=== PATIENT | male | born 1970 | race Caucasian/White ===

== ENCOUNTER → 2018-09-10 | Outpatient (CLI) | payer BC ==
[2018-09-10 17:02] LABS: HCT 48.4 % (39.0-53.0); HGB 15.1 gm/dL (13.0-17.5); MCH 29.3 pg (25.0-35.0); MCHC 31.2 g/dL (31.0-37.0); Mean Platelet Volume 5.9; Platelet Count 325 k/uL (150-450); RBC 5.15 m/uL (4.30-5.90); RDW 13.3 % (11.5-15.5); WBC 13.8 k/uL (3.8-10.6)
== END ==
LOC: LABPAT 16:28
PROVIDERS: ATTEND Surgery
DX: Z01.812 Encounter for preprocedural laboratory examination (principal); L05.91 Pilonidal cyst without abscess
CPT/HCPCS: 85027

== ENCOUNTER 2018-09-12 06:29 | Day surgery (SDC) | payer BC, SELFPAY ==
[2018-09-10 09:46] VITALS: BMI 46.3
[~2018-09-12 06:29] MED LIST: DEXAMETHASONE SOD PHOSPHATE 10 MG/ML 1 ML VIAL IV ONE; HEPARIN SODIUM,PORCINE 5,000 UNIT/ML 1 ML VIAL SQ ONE; HYDROmorphone 0.5 MG/0.5 ML SYRINGE IVP PRN; LACTATED RINGERS 1,000 ML IV SCH; LIDOCAINE 1% 20 ML VIAL (10MG/ML) FOR IV START INTRADERMA PRN; ONDANSETRON 4 MG/2 ML VIAL IVP ONE; SCOPOLAMINE 1.5MG/72HR PATCH TRANSDERM ONE; ceFAZolin IN SWFI 2 GM/20 ML SYRINGE IVP ONE; metroNIDAZOLE-NS PMX 500 MG in SALINE 1 100ML.BAG IVPB ONE
[2018-09-12] MEDS ORDERED: BUPIVACAIN-EPI 0.25%-1:200,000 30 ML VIAL SQ ONE (07:58)
[2018-09-12] MEDS ORDERED: fentaNYL (PF) 50 MCG/ML 2 ML AMP ONE (08:12)
[2018-09-12] MEDS ORDERED: MIDAZOLAM 2 MG/2 ML VIAL ONE (08:12)
[2018-09-12] MEDS ORDERED: LIDOCAINE 1% INJ 10MG/ML (20 ML MDV) ONE (08:12)
[2018-09-12] MEDS ORDERED: PROPOFOL 10 MG/ML 20 ML VIAL IV ONE (08:12)
[2018-09-12] MEDS ORDERED: SUCCINYLCHOLINE CHLORIDE VIAL 200 MG/10 ML VIAL IV ONE (08:12)
[2018-09-12 09:25] VITALS: RESP 16; TEMP 97.1
--- NOTE | 2018-09-12 09:42 | P.OP ---
Date of Procedure: 09/12/18 Preoperative Diagnosis: Recurrent chronic pilonidal cyst Postoperative Diagnosis: Recurrent chronic pilonidal cyst Procedure(s) Performed: Excision of chronic recurrent pilonidal cyst Anesthesia: HAYLEE Surgeon: Enrique Lafleur Estimated Blood Loss (ml): 30 Pathology: other (Pilonidal cyst) Condition: stable Disposition: PACU Description of Procedure: The patient's placed on the operating table in the prone position after receiving general anesthesia. His buttocks were prepped in the usual fashion. Patient had a chronic pilonidal cyst. There was a superior and inferior cyst opening. Elliptical skin incision was made around the area pilonidal cyst. And then using left cautery the dissection was taken down level of the coccyx. This was withdrawn. The patient had quite an extensive pilonidal cyst. The wound measured approximately 14 x 5 x 3 cm. The wound was packed with Kerlix. Patient top she will was sent to recovery room stable condition.
[2018-09-12 10:25] VITALS: BP 123/73; PULSE 74
== END 2018-09-12 10:29 | disposition home or self-care (01) ==
LOC: OR 06:29
PROVIDERS: ATTEND Surgery
DX: L05.91 Pilonidal cyst without abscess (principal); I25.10 Atherosclerotic heart disease of native coronary artery without angina pectoris; I25.2 Old myocardial infarction; J45.909 Unspecified asthma, uncomplicated; K21.9 Gastro-esophageal reflux disease without esophagitis; Z79.899 Other long term (current) drug therapy; Z87.891 Personal history of nicotine dependence
CPT/HCPCS: 88304; 11771; J2250; J0330; J1644; J1100; J2405; J2001; J3010; J2704; J1170; J0690

== ENCOUNTER 2020-03-10 18:47 | Emergency (ER) | payer BC ==
[2020-03-10 18:55] VITALS: TEMP 98.1
[2020-03-10 19:47] LABS: Amphetamine Screen,Urine Not Detected (NotDetected); Barbiturate Screen,Urine Not Detected (NotDetected); Benzodiazepines Screen,Urine Not Detected (NotDetected); Cocaine Screen,Urine Not Detected (NotDetected); Methadone Screen, Urine Not Detected (NotDetected); Opiate Screen,Urine Not Detected (NotDetected); Oxycodone Screen, Urine Not Detected (NotDetected); Phencyclidine Screen,Urine Not Detected (NotDetected); Tricyclic Antidepressant,Urine Not Detected (NotDetected); Urn Cannabinoid Scrn Not Detected (NotDetected)
--- NOTE | 2020-03-10 19:57 | ED ---
Psych HPI - General Chief Complaint: Psychiatric Symptoms Stated Complaint: Mental health Time Seen by Provider: 03/10/20 18:56 Source: patient Mode of arrival: ambulatory - History of Present Illness Initial Comments: 50-year-old male patient presents to the emergency department today for evaluation of suicidal ideation and depression. Patient states he has had increased suicidal thoughts over the last 2 days. States that over the last 3-4 years he has been having a lot of stress and becoming more and more depressed. Patient does not take any medications for depression. Does not see a counselor. Patient denies frequent alcohol use or street drug use. Patient does not have a specific plan to take his life. States he is having difficulty sleeping and has had no appetite due to the depression. He denies hallucinations. Patient denies any recent rash, fever, chills, cough, shortness of breath, chest pain, abdominal pain, nausea, vomiting, diarrhea, constipation, back pain, numbness, tingling, dizziness, weakness, hematuria, dysuria, urinary urgency, urinary frequency, headache, visual changes, or any other complaints. - Related Data Home Medications Medication Instructions Recorded Confirmed Albuterol Sulfate [Proair Hfa] 1 - 2 puff INHALATION Q6HR PRN 09/10/18 03/10/20 Albuterol Nebulized [Ventolin 2.5 mg INHALATION RT-QID PRN 03/10/20 03/10/20 Nebulized] Allergies Allergy/AdvReac Type Severity Reaction Status Date / Time No Known Allergies Allergy Verified 03/10/20 19:29 Review of Systems ROS Statement: Those systems with pertinent positive or pertinent negative responses have been documented in the HPI. ROS Other: All systems not noted in ROS Statement are negative. Past Medical History Past Medical History: Asthma, Myocardial Infarction ([place]) Last Myocardial Infarction Date:: 1999 History of Any Multi-Drug Resistant Organisms: None Reported Past Surgical History: Back Surgery, Cholecystectomy, Heart Catheterization With Stent Additional Past Surgical History / Comment(s): Pilonodial cyst removed Past Anesthesia/Blood Transfusion Reactions: No Reported Reaction Date of Last Stent Placement:: 1999 Past Psychological History: No Psychological Hx Reported Smoking Status: Current every day smoker Past Alcohol Use History: Occasional Past Drug Use History: None Reported - Past Family History Mother Family Medical History: Cancer Additional Family Medical History / Comment(s): Reproductive General Exam Limitations: no limitations General appearance: alert, in no apparent distress, other (This is a well- developed, well-nourished adult male patient in no acute distress. Vital signs upon presentation are temperature 98.1F, pulse 105, respirations 18, blood pressure 147/68, pulse ox 98% on room air.) Eye exam: Present: normal appearance, PERRL, EOMI. Absent: scleral icterus, conjunctival injection, periorbital swelling ENT exam: Present: normal exam, normal oropharynx, mucous membranes moist Respiratory exam: Present: normal lung sounds bilaterally. Absent: respiratory distress, wheezes, rales, rhonchi, stridor Cardiovascular Exam: Present: regular rate, normal rhythm, normal heart sounds. Absent: systolic murmur, diastolic murmur, rubs, gallop, clicks GI/Abdominal exam: Present: soft, normal bowel sounds. Absent: distended, tenderness, guarding, rebound, rigid Neurological exam: Present: alert, oriented X3, CN II-XII intact Psychiatric exam: Present: depressed, suicidal ideation. Absent: homicidal ideation Skin exam: Present: warm, dry, intact, normal color. Absent: rash Course Vital Signs 03/10/20 03/10/20 18:49 21:45 Temperature 98.1 F 98.1 F Pulse Rate 105 H 84 Respiratory 18 20 Rate Blood Pressure 147/68 111/78 O2 Sat by Pulse 98 96 Oximetry Medical Decision Making - Medical Decision Making 50-year-old male patient presents to the emergency department today for evaluation of increasing depression and suicidal ideation. Patient denies any actual plan to take his life. Denies history of suicide attempt. Physical examination is unremarkable. He was cleared medically and evaluated by [facility] psychiatric services. After their evaluation they did determine that he would be safe to discharge home. They did develop a safety plan was given a copy. He will follow up with outpatient mental health services as directed. He is instructed to follow-up with his primary care physician for recheck in 1-2 days. Return parameters were discussed in detail. He verbalizes understanding and agrees this plan. - Lab Data Lab Results 03/10/20 Range/Units 19:29 Urine Opiates Screen Not Detected (NotDetected) Ur Oxycodone Screen Not Detected (NotDetected) Urine Methadone Screen Not Detected (NotDetected) Ur Propoxyphene Screen Not Detected (NotDetected) Ur Barbiturates Screen Not Detected (NotDetected) U Tricyclic Antidepress Not Detected (NotDetected) Ur Phencyclidine Scrn Not Detected (NotDetected) Ur Amphetamines Screen Not Detected (NotDetected) U Methamphetamines Scrn Not Detected (NotDetected) U Benzodiazepines Scrn Not Detected (NotDetected) Urine Cocaine Screen Not Detected (NotDetected) U Marijuana (THC) Screen Not Detected (NotDetected) Disposition Clinical Impression: Depression Disposition: HOME SELF-CARE Condition: Good Instructions (If sedation given, give patient instructions): Depression (ED), Suicide Prevention (ED) Additional Instructions: Follow-up with outpatient mental health services as directed. Follow-up through primary care physician for recheck in 1-2 days. Return to the emergency department immediately for any new, worsening, or concerning symptoms. Is patient prescribed a controlled substance at d/c from ED?: No Referrals: Jad Goodrich MD [Primary Care Provider] - 1-2 days Time of Disposition: 21:41
[2020-03-10 21:48] VITALS: BP 111/78; PULSE 84; RESP 20
== END 2020-03-10 21:48 | disposition home or self-care (01) ==
LOC: EC 18:47
DX: F32.9 Major depressive disorder, single episode, unspecified (principal); R45.851 Suicidal ideations; J45.909 Unspecified asthma, uncomplicated; I25.2 Old myocardial infarction; F17.200 Nicotine dependence, unspecified, uncomplicated; Z95.5 Presence of coronary angioplasty implant and graft
CPT/HCPCS: 80306; 82075; 99285

== ENCOUNTER 2020-03-14 09:55 | Observation (INO) | payer BC ==
[2020-03-14] MEDS ORDERED: ASPIRIN 81 MG PO STA (10:01)
[2020-03-14] MEDS ORDERED: NITROGLYCERIN OINT 1 INCH/GM PACKET TOPICAL STA (10:01)
[2020-03-14 10:27] LABS: Basophils % (A) 0 %; Eosinophils # (A) 0.1 k/uL (0-0.7); Eosinophils % (A) 1 %; HCT 46.5 % (39.0-53.0); HGB 15.4 gm/dL (13.0-17.5); Lymphocytes # (A) 1.3 k/uL (1.0-4.8); Lymphocytes % (A) 14 %; MCH 30.5 pg (25.0-35.0); MCHC 33.2 g/dL (31.0-37.0); MCV 91.8 fL (80.0-100.0); Mean Platelet Volume 7.2; Monocytes # (A) 0.4 k/uL (0-1.0); Monocytes % (A) 4 %; Neutrophils # (A) 7.8 k/uL (1.3-7.7); Neutrophils % (A) 80 %; Platelet Count 319 k/uL (150-450); RBC 5.06 m/uL (4.30-5.90); WBC 9.8 k/uL (3.8-10.6)
[2020-03-14 10:37] LABS: ALT 38 U/L (4-49); AST 40 U/L (17-59); African American GFR (CKD) >90 (>60 ml/min/1.73 sqM); Albumin 4.6 g/dL (3.5-5.0); Alkaline Phosphatase 101 U/L (38-126); Anion Gap 12 mmol/L; Blood Urea Nitrogen 15 mg/dL (9-20); Calcium 9.8 mg/dL (8.4-10.2); Carbon Dioxide 18 mmol/L (22-30); Chloride 105 mmol/L (98-107); Creatine Kinase 250 U/L (55-170); Glucose 125 mg/dL (74-99); Magnesium 2.1 mg/dL (1.6-2.3); Non-African American GFR(CKD) >90 (>60 ml/min/1.73 sqM); Potassium 5.1 mmol/L (3.5-5.1); Sodium 135 mmol/L (137-145); Total Bilirubin 0.9 mg/dL (0.2-1.3); Total Protein 7.8 g/dL (6.3-8.2)
--- NOTE | 2020-03-14 10:37 | ED ---
Chest Pain HPI - General Chief Complaint: Chest Pain Stated Complaint: chest pain Time Seen by Provider: 03/14/20 09:55 Source: patient, RN notes reviewed Mode of arrival: ambulatory Limitations: no limitations - History of Present Illness Initial Comments: This a 42-year-old male with prior history of heart disease and heart attack about 15 years ago who was brought in by EMS today because the onset of left- sided sharp chest pain feels similar to what he had with his previous ND. He was found be complaining of chest pain was diaphoretic pain was described as sharp mid and left sternal he was given nitroglycerin the pain improved from about a 9 to a 6/10. No definite EKG changes noted per paramedics. He was at work at the time when this occurred. No unusual activity or lifting. No cough phlegm production fevers chills. No other modifying factors. He did not take aspirin today. MD Complaint: chest pain - Related Data Home Medications Medication Instructions Recorded Confirmed Albuterol Sulfate [Proair Hfa] 1 puff INHALATION RT-DAILY PRN 09/10/18 03/14/20 Albuterol Nebulized [Ventolin 2.5 mg INHALATION RT-QID PRN 03/10/20 03/14/20 Nebulized] Allergies Allergy/AdvReac Type Severity Reaction Status Date / Time No Known Allergies Allergy Verified 03/14/20 10:54 Review of Systems ROS Statement: Those systems with pertinent positive or pertinent negative responses have been documented in the HPI. ROS Other: All systems not noted in ROS Statement are negative. EKG Findings - EKG Results: EKG: interpreted by ERMD, sinus rhythm, normal axis, normal QRS, normal ST/T, no acute changes (Normal sinus rhythm a 79 [place] interval is 170 QT QRS 70 daily QT since QTC 388/[address]-T wave changes seen) Past Medical History Past Medical History: Asthma, Myocardial Infarction ([place]) Last Myocardial Infarction Date:: 1999 History of Any Multi-Drug Resistant Organisms: None Reported Past Surgical History: Back Surgery, Cholecystectomy, Heart Catheterization With Stent Additional Past Surgical History / Comment(s): Pilonodial cyst removed Past Anesthesia/Blood Transfusion Reactions: No Reported Reaction Date of Last Stent Placement:: 1999 Past Psychological History: Depression Smoking Status: Current every day smoker Past Alcohol Use History: Occasional Past Drug Use History: None Reported - Past Family History Mother Family Medical History: Cancer Additional Family Medical History / Comment(s): Reproductive General Exam - General Exam Comments Initial Comments: This is a well-developed well-nourished awake alert oriented 3 male Limitations: no limitations General appearance: alert, anxious Head exam: Present: atraumatic, normocephalic, normal inspection Eye exam: Present: normal appearance, PERRL, EOMI. Absent: scleral icterus, conjunctival injection, periorbital swelling ENT exam: Present: normal exam, mucous membranes moist Neck exam: Present: normal inspection. Absent: tenderness, meningismus, lymphadenopathy Respiratory exam: Present: normal lung sounds bilaterally, chest wall tenderness. Absent: respiratory distress, wheezes, rales, rhonchi, stridor Cardiovascular Exam: Present: regular rate, normal rhythm, normal heart sounds. Absent: systolic murmur, diastolic murmur, rubs, gallop, clicks GI/Abdominal exam: Present: soft, normal bowel sounds. Absent: distended, tenderness, guarding, rebound, rigid Extremities exam: Present: normal inspection, full ROM, normal capillary refill. Absent: tenderness, pedal edema, joint swelling, calf tenderness Back exam: Present: normal inspection Neurological exam: Present: alert, oriented X3, CN II-XII intact Psychiatric exam: Present: normal affect, normal mood Skin exam: Present: warm, dry, intact, normal color. Absent: rash Course Vital Signs 03/14/20 03/14/20 10:07 11:19 Temperature 97.8 F 97.9 F Pulse Rate 77 78 Respiratory 18 18 Rate Blood Pressure 133/76 142/79 O2 Sat by Pulse 99 97 Oximetry Chest Pain MDM - MDM Imaging reviewed shows no acute findings. Patient does have. After discussed with patient family and Dr. Gr patient will be admitted for cardiology evaluation. Critical Care Time Critical Care Time: Yes Total Critical Care Time: 31 Critical Care Time: Critical care time includes initial presentation with history physical discussed with paramedics labs x-rays reevaluation patient responsive therapy discuss with the admitting physician admission orders and documentation of the above. Disposition Clinical Impression: Unstable angina pectoris, Chest pain Disposition: ADMITTED IP TO THIS [facility] Condition: Fair Referrals: Jad Goodrich MD [Primary Care Provider] - 1-2 days
--- NOTE | 2020-03-14 10:37 | XR ---
EXAMINATION TYPE: XR chest 2V DATE OF EXAM: 03/14/2020 HISTORY: Chest Pain. REFERENCE: Previous study dated 12/26/2013. FINDINGS: Heart size upper limits of normal. The lungs are clear. Pleural space are clear. IMPRESSION: BORDERLINE CARDIOMEGALY.
[2020-03-14 10:57] LABS: D-Dimer 0.44 mg/L FEU (<0.60); Partial Thromboplastin Time 22.3 sec (22.0-30.0); Prothrombin Time 9.9 sec (9.0-12.0)
[2020-03-14] MEDS ORDERED: HEPARIN SODIUM,PORCINE 5,000 UNIT/ML 1 ML VIAL IV ONE (11:54)
[2020-03-14] MEDS ORDERED: NITROGLYCERIN SL TABS 0.4 MG TAB SUBLINGUAL PRN (11:54)
[2020-03-14] MEDS ORDERED: ALBUTEROL HFA INHALER INHALATION PRN (11:57)
[2020-03-14] MEDS: HEPARIN SOD,PORK IN 0.45% NACL 25,000 UNIT in 0.45% NACL 1 250ML.BAG IV SCH (12:28)
[2020-03-14] MEDS: SODIUM CHLORIDE 0.9% 1,000 ML IV SCH (12:29)
[2020-03-14] MEDS: NITROGLYCERIN OINT 1 INCH/GM PACKET TOPICAL SCH ×2 (15:43→22:06)
[2020-03-14] MEDS: ALBUTEROL NEBULIZED 2.5 MG/3 ML INHALATION PRN (19:48)
[2020-03-14] MEDS: HEPARIN SODIUM,PORCINE 5,000 UNIT/ML 1 ML VIAL IV PRN (20:40)
[2020-03-15] MEDS: NITROGLYCERIN OINT 1 INCH/GM PACKET TOPICAL SCH ×2 (01:57→06:28)
[2020-03-15 04:13] LABS: Cholesterol 128 mg/dL (<200); HDL Cholesterol 63 mg/dL (40-60); LDL Cholesterol,Calculated 54 mg/dL (0-99); Triglycerides 56 mg/dL (<150)
[2020-03-15] MEDS: HEPARIN SODIUM,PORCINE 5,000 UNIT/ML 1 ML VIAL IV PRN (04:33)
[2020-03-15] MEDS: HEPARIN SOD,PORK IN 0.45% NACL 25,000 UNIT in 0.45% NACL 1 250ML.BAG IV SCH (07:38)
[2020-03-15] MEDS ORDERED: ASPIRIN 325 MG TAB PO SCH (09:00)
[2020-03-15] MEDS ORDERED: CAFFEINE CITRATE 60 MG/3 ML VIAL IV PRN (10:12)
[2020-03-15] MEDS ORDERED: REGADENOSON 0.4 MG/5 ML SYRINGE IV ONE (10:12)
[2020-03-15] MEDS ORDERED: AMINOPHYLLINE 500 MG/20 ML VIAL IV PRN (10:12)
--- NOTE | 2020-03-15 10:32 | P.CRDCN ---
History of Present Illness History of present illness: HISTORY OF PRESENTING ILLNESS This is a pleasant 50-year-old male past medical history significant for chronic nicotine dependence and morbid obesity. He does not follow in the office with glass washer. We have been asked to see in consultation for he states yesterday he was having a particularly stressful day. Had an acute onset of sharp pain in the left precordial region that radiated to the left shoulder associated with significant dizziness, bilateral arm numbness and tingling and shortness of breath. He states he had a similar type episode on Monday where he came to the emergency department and was seen by psychiatry. He is scheduled to begin outpatient therapy tomorrow. His chest discomfort has subsided. 2013 he underwent a Lexiscan stress test that revealed evidence of reversible ischemia with septal and inferior wall hypokinesia and ejection fraction of 43%. At that time he had no symptoms of chest discomfort and was having significant abdominal pain. He was found to have a gangrenous gallbladder. Cardiac catheterization was postponed and he underwent cholecystectomy. His cardiac history somewhat vague. The patient states he had a heart attack and thinks he might of had a catheterization and stent but he is unsure who may have done this somewhere was done if at all. DIAGNOSTICS EKG reveals sinus mechanism with no acute ST or T wave abnormalities noted. Chest xray it for an acute cardiopulmonary process. Laboratory reviewed, WBC 9.8, hemoglobin 15.4, platelets 319, d-dimer 0.44, sodium 135, potassium 5.1, creatinine 0.94, magnesium 2.1, cardiac enzymes negative 3, NT proBNP 67, LDL 54 and HDL 63. He takes no daily cardiac medications. REVIEW OF SYSTEMS At the time of my exam: CONSTITUTIONAL: Denies fever or chills. CARDIOVASCULAR: Denies chest pain, shortness of breath, orthopnea, PND or palpitations. RESPIRATORY: Denies cough. GASTROINTESTINAL: Denies abdominal pain, diarrhea, constipation, nausea or vomiting. MUSCULOSKELETAL: Denies myalgias. NEUROLOGIC: Denies numbness, tingling or weakness. ENDOCRINE: Denies fatigue, weight change, polydipsia or polyurina. GENITOURINARY: Denies burning, hematuria or urgency with micturation. HEMATOLOGIC: Denies history of anemia or bleeding. PHYSICAL EXAMINATION Blood pressure 132/72 heart rate 66 afebrile and maintaining oxygen saturation on room air. CONSTITUTIONAL: No apparent distress. Morbidly obese. HEENT: Head is normocephalic. Pupils are equal, round. Sclerae anicteric. Mucous membranes of the mouth are moist. No JVD. No carotid bruit. CHEST EXAMINATION: Lungs are clear to auscultation. No chest wall tenderness is noted on palpation or with deep breathing. Diminished bilaterally. HEART EXAMINATION: Regular rate and rhythm. S1, S2 heard. No murmurs, gallops or rub. ABDOMEN: Soft, nontender. Positive bowel sounds. EXTREMITIES: 2+ peripheral pulses, no lower extremity edema and no calf tenderness. NEUROLOGIC EXAMINATION: Patient is awake, alert and oriented x3. ASSESSMENT Chest pain, atypical for angina. An acute coronary event has been ruled out. Chronic nicotine dependence Morbid obesity, BMI 48 Family history of premature coronary artery disease, father at the age of 50 from heart attack. PLAN An acute coronary event has been ruled out. Discontinue heparin infusion. Increase activity and ambulation in the halls. If his symptoms return with activity we will consider cardiac catheterization. If he remains asymptomatic we will pursue stress testing in the morning. Smoking cessation recommended. Lifestyle modifications discussed for weight loss. Further recommendations to follow based upon clinical course. Thank you kindly for this consultation. Nurse Practitioner note has been reviewed, I agree with a documented findings and plan of care. Patient was seen and examined. Past Medical History Past Medical History: Asthma, Myocardial Infarction ([place]) Last Myocardial Infarction Date:: 1999 History of Any Multi-Drug Resistant Organisms: None Reported Past Surgical History: Back Surgery, Cholecystectomy, Heart Catheterization With Stent Additional Past Surgical History / Comment(s): Pilonodial cyst removed Past Anesthesia/Blood Transfusion Reactions: No Reported Reaction Date of Last Stent Placement:: 1999 Past Psychological History: Depression Smoking Status: Current every day smoker Past Alcohol Use History: Occasional Additional Past Alcohol Use History / Comment(s): QUIT SMOKING 3 MONTHS AGO Past Drug Use History: None Reported - Past Family History Mother Family Medical History: Cancer Additional Family Medical History / Comment(s): Reproductive Medications and Allergies Home Medications Medication Instructions Recorded Confirmed Type Albuterol Sulfate [Proair Hfa] 1 puff INHALATION RT-DAILY PRN 09/10/18 03/14/20 History Albuterol Nebulized [Ventolin 2.5 mg INHALATION RT-QID PRN 07/14/20 07/18/20 History Nebulized] Allergies Allergy/AdvReac Type Severity Reaction Status Date / Time No Known Allergies Allergy Verified 03/14/20 10:54 Physical Exam Vitals: Vital Signs Temp Pulse Pulse Resp BP BP Pulse Ox 03/15/20 08:35 97.7 F 66 18 132/72 97 03/15/20 02:52 79 18 03/15/20 02:51 97.5 F L 79 18 129/64 95 03/14/20 21:00 97.6 F 78 18 150/73 96 03/14/20 19:59 73 03/14/20 19:48 73 95 03/14/20 17:23 98.2 F 84 12 165/71 96 03/14/20 12:54 98.0 F 77 14 162/72 97 03/14/20 12:13 98.1 F 81 18 147/87 97 03/14/20 11:19 97.9 F 78 18 142/79 97 03/14/20 10:07 97.8 F 77 18 133/76 99 Intake and Output 03/14/20 03/15/20 03/15/20 22:59 06:59 14:59 Intake Total 81.167 117.686 51.147 Balance 81.167 117.686 51.147 Intake: Intake, IV Titration 81.167 117.686 51.147 Amount Heparin Sod,Pork in 0.45% 81.167 117.686 51.147 NaCl 25,000 unit In 0.45 % NaCl 1 250ml.bag @ 6. 1239 UNITS/KG/HR 10 mls/ hr IV .Q24H [facility] Rx#: [id number] Oral 0 Other: Voiding Method Toilet Toilet # Voids 1 1 1 Results 03/14/20 10:06 03/14/20 10:06 Cardiac Enzymes 03/14/20 03/14/20 03/14/20 Range/Units 10:06 10:06 13:05 AST 40 (17-59) U/L Troponin I <0.012 <0.012 (0.000-0.034) ng/mL 03/14/20 Range/Units 15:51 AST (17-59) U/L Troponin I <0.012 (0.000-0.034) ng/mL Coagulation 03/14/20 03/14/20 03/15/20 Range/Units 10:06 18:52 03:35 PT 9.9 (9.0-12.0) sec APTT 22.3 24.3 28.7 (22.0-30.0) sec Lipids 03/15/20 Range/Units 03:35 Triglycerides 56 (<150) mg/dL Cholesterol 128 (<200) mg/dL HDL Cholesterol 63 H (40-60) mg/dL CBC 03/14/20 Range/Units 10:06 WBC 9.8 (3.8-10.6) k/uL RBC 5.06 (4.30-5.90) m/uL Hgb 15.4 (13.0-17.5) gm/dL Hct 46.5 (39.0-53.0) % Plt Count 319 (150-450) k/uL Comprehensive Metabolic Panel 03/14/20 Range/Units 10:06 Sodium 135 L (137-145) mmol/L Potassium 5.1 (3.5-5.1) mmol/L Chloride 105 (98-107) mmol/L Carbon Dioxide 18 L (22-30) mmol/L BUN 15 (9-20) mg/dL Creatinine 0.94 (0.66-1.25) mg/dL Glucose 125 H (74-99) mg/dL Calcium 9.8 (8.4-10.2) mg/dL AST 40 (17-59) U/L ALT 38 (4-49) U/L Alkaline Phosphatase 101 (38-126) U/L Total Protein 7.8 (6.3-8.2) g/dL Albumin 4.6 (3.5-5.0) g/dL Current Medications Generic Name Dose Route Start Last Admin Trade Name Freq PRN Reason Stop Dose Admin Albuterol Sulfate 1 puff 03/14/20 11:57 Ventolin Hfa Inhaler INHALATION RT-DAILY PRN SHORT OF BREATH Albuterol Sulfate 2.5 mg 03/14/20 11:57 03/14/20 19:48 Ventolin Nebulized INHALATION 2.5 mg RT-QID PRN Administration Shortness Of Breath Aspirin 325 mg 03/15/20 09:00 Aspirin PO DAILY MOOK Heparin Sodium (Porcine) 0 unit 03/14/20 20:26 03/15/20 04:33 Heparin IV 4,000 unit PER PROTOCOL PRN Administration Low PTT Protocol Sodium Chloride 1,000 mls @ 20 mls/hr 03/14/20 12:00 03/14/20 12:29 Saline 0.9% IV 20 mls/hr .Q24H MOOK Administration Heparin Sodium/Sodium Chloride 250 mls @ 10 mls/hr 03/14/20 12:00 03/15/20 07:38 25,000 unit/ Sodium Chloride IV 12.12 units/kg/hr .Q24H MOOK 19.791 mls/hr Administration Protocol 6.1239 UNITS/KG/HR Nitroglycerin 0.4 mg 03/14/20 11:54 Nitrostat SUBLINGUAL Q5M PRN Chest Pain Nitroglycerin 1 inch 03/14/20 12:00 03/15/20 06:28 Nitro-Bid Oint TOPICAL Not Given Q6HR MOOK Intake and Output 03/14/20 03/15/20 03/15/20 22:59 06:59 14:59 Intake Total 81.167 117.686 51.147 Balance 81.167 117.686 51.147 Intake: Intake, IV Titration 81.167 117.686 51.147 Amount Heparin Sod,Pork in 0.45% 81.167 117.686 51.147 NaCl 25,000 unit In 0.45 % NaCl 1 250ml.bag @ 6. 1239 UNITS/KG/HR 10 mls/ hr IV .Q24H [facility] Rx#: [id number] Oral 0 Other: Voiding Method Toilet Toilet # Voids 1 1 1 03/14/20 10:06 03/14/20 10:06
[2020-03-15] MEDS: ALBUTEROL NEBULIZED 2.5 MG/3 ML INHALATION PRN ×2 (11:30→23:42)
--- NOTE | 2020-03-15 11:46 | P.HPIM ---
History of Present Illness H&P Date: 03/15/20 Chief Complaint: Chest pain 03/14/2023-50 year-old male morbidly obese patient who presented emergency room with sharp left-sided chest pain and diaphoresis. EKG as interpreted by the ER Josefa. with sinus rhythm, normal sinus axis, normal QRS, normal ST, no acute changes. He works as a delivery coordinator for [employer] and was at the warehouse completing paperwork when the symptoms first arose. He denies any strenuous activity that may have precipitated the event. Past medical history of myocardial infarction in which the symptoms that he is experiencing now with those that he felt with his DC in the past. He is also known to have asthma, cholecystectomy, back surgery, heart catheterization with stent, and he is occurring every day smoker and is noted to have depression. Initial vitals afebrile 98.2 orally, pulse rate of 84, respiratory rate of 12, blood pressure 165/71, oxygen saturation of 96% on room air. Initial lab work WBC of 9.8, hemoglobin 15 point point, hematocrit 46.5, platelet count 319, PT 9.9, INR 1.0, APTT 22.3, and a d-dimer of 0.44. Chemistry reveals a sodium of 135, potassium 5.1, chloride 105, carbon dioxide of 18, NEMO of 15, creatinine 0.94, GFR greater than 90 and a glucose 125. Liver enzymes are normal AST of 40, ELT of 38. Troponins are negative less than 0.012 for all 3 sets, initial CK of 250, BNP of 67. He denies nausea\vomiting, visual disturbance, fever, chills, myalgia, shortness of breath, difficulty breathing, syncope, neurological and her gait disturbance. Review of Systems Constitutional: Reports as per HPI Ears, nose, mouth and throat: Reports as per HPI Cardiovascular: Reports as per HPI, Reports chest pain, Reports leg edema Respiratory: Reports as per HPI Gastrointestinal: Reports as per HPI Genitourinary: Reports erectile dysfunction Musculoskeletal: Reports as per HPI Integumentary: Reports as per HPI Neurological: Reports as per HPI Psychiatric: Reports as per HPI Endocrine: Reports as per HPI Hematologic/Lymphatic: Reports as per HPI Allergic/Immunologic: Reports as per HPI Past Medical History Past Medical History: Asthma, Myocardial Infarction (DC) Last Myocardial Infarction Date:: 1999 History of Any Multi-Drug Resistant Organisms: None Reported Past Surgical History: Back Surgery, Cholecystectomy, Heart Catheterization With Stent Additional Past Surgical History / Comment(s): Pilonodial cyst removed Past Anesthesia/Blood Transfusion Reactions: No Reported Reaction Date of Last Stent Placement:: 1999 Past Psychological History: Depression Smoking Status: Current every day smoker Past Alcohol Use History: Occasional Additional Past Alcohol Use History / Comment(s): QUIT SMOKING 3 MONTHS AGO Past Drug Use History: None Reported - Past Family History Mother Family Medical History: Cancer Additional Family Medical History / Comment(s): Reproductive Medications and Allergies Home Medications Medication Instructions Recorded Confirmed Type Albuterol Sulfate [Proair Hfa] 1 puff INHALATION RT-DAILY PRN 09/10/18 03/14/20 History Albuterol Nebulized [Ventolin 2.5 mg INHALATION RT-QID PRN 03/10/20 03/14/20 History Nebulized] Allergies Allergy/AdvReac Type Severity Reaction Status Date / Time No Known Allergies Allergy Verified 03/14/20 10:54 Physical Exam Vitals: Vital Signs Temp Pulse Pulse Resp BP BP Pulse Ox 03/15/20 08:35 97.7 F 66 18 132/72 97 03/15/20 02:52 79 18 03/15/20 02:51 97.5 F L 79 18 129/64 95 03/14/20 21:00 97.6 F 78 18 150/73 96 03/14/20 19:59 73 03/14/20 19:48 73 95 03/14/20 17:23 98.2 F 84 12 165/71 96 03/14/20 12:54 98.0 F 77 14 162/72 97 03/14/20 12:13 98.1 F 81 18 147/87 97 03/14/20 11:19 97.9 F 78 18 142/79 97 Intake and Output 03/14/20 03/15/20 03/15/20 22:59 06:59 14:59 Intake Total 81.167 117.686 51.147 Balance 81.167 117.686 51.147 Intake: Intake, IV Titration 81.167 117.686 51.147 Amount Heparin Sod,Pork in 0.45% 81.167 117.686 51.147 NaCl 25,000 unit In 0.45 % NaCl 1 250ml.bag @ 6. 1239 UNITS/KG/HR 10 mls/ hr IV .Q24H [facility] Rx#: [id number] Oral 0 Other: Voiding Method Toilet Toilet # Voids 1 1 1 GENERAL: Well-appearing, well-nourished, morbidly obese and in no acute distress. HEAD: Atraumatic, normocephalic. EYES: Pupils equal round and reactive to light, extraocular movements intact, sclera anicteric, conjunctiva are normal. ENT:nares patent, oropharynx clear without exudates. Moist mucous membranes. NECK: Normal range of motion, supple without lymphadenopathy or JVD, no thyromegaly LUNGS: Breath sounds clear to auscultation bilaterally and equal. No wheezes rales or rhonchi. HEART: Regular rate and rhythm without murmurs, rubs or gallops.S1S2 Normal ABDOMEN: Soft, nontender, normoactive bowel sounds. No guarding, no rebound. No masses appreciated. EXTREMITIES: Normal range of motion, no pitting or edema. No clubbing or cyanosis. NEUROLOGICAL: Cranial nerves II through XII grossly intact. Normal speech, normal gait. PSYCH: Normal mood, normal affect. SKIN: Warm, Dry, normal turgor, no rashes or lesions noted. Results CBC & Chem 7: 03/14/20 10:06 03/14/20 10:06 Labs: Abnormal Lab Results - Last 24 Hours (Table) 03/15/20 Range/Units 03:35 HDL Cholesterol 63 H (40-60) mg/dL Thrombosis Risk Factor Assmnt - Choose All That Apply Any of the Below Risk Factors Present?: Yes Each Factor Represents 1 point: Age 41-60 years Other Risk Factors: No Other congenital or acquired thrombophilia - If yes, enter type in comment: No Thrombosis Risk Factor Assessment Total Risk Factor Score: 1 Thrombosis Risk Factor Assessment Level: Low Risk Assessment and Plan (1) Morbid obesity Current Visit: Yes Status: Acute Code(s): E66.01 - MORBID (SEVERE) OBESITY DUE TO EXCESS CALORIES SNOMED Code(s): 720650849 (2) Family history of premature coronary artery disease Current Visit: Yes Status: Acute Code(s): Z82.49 - FAMILY HX OF ISCHEM HEART DIS AND OTH DIS OF THE CIRC SYS SNOMED Code(s): 692000005 (3) Chest pain Current Visit: Yes Status: Acute Code(s): R07.9 - CHEST PAIN, UNSPECIFIED SNOMED Code(s): 02131384 (4) Unstable angina pectoris Current Visit: Yes Status: Acute Code(s): I20.0 - UNSTABLE ANGINA SNOMED Code(s): 4716825 (5) Hx of myocardial infarction Current Visit: No Status: Acute Code(s): I25.2 - OLD MYOCARDIAL INFARCTION SNOMED Code(s): 723001096 (6) Nicotine dependence Current Visit: No Status: Acute Code(s): F17.200 - NICOTINE DEPENDENCE, UNSPECIFIED, UNCOMPLICATED SNOMED Code(s): 68764885 Plan: 1. Follow cardiology recommendations as he will have stress testing in the morning. 2. Increase activity as tolerated in hospital room. 3. Smoking cessation recommended and discussed with patient. 4. Lifestyle modifications for weight loss. 5. We will continue to monitor closely. Time with Patient: Greater than 30
[2020-03-15 21:19] VITALS: RESP 18
[2020-03-16 08:02] VITALS: BP 132/74; PULSE 69; TEMP 97.8
[2020-03-16] MEDS ORDERED: ASPIRIN 81 MG PO SCH (09:00)
--- NOTE | 2020-03-16 09:20 | P.STRESS ---
- Stress Test Note Stress Test Results/Findings: Exam Performed: NM stress lexiscan cardiolite Exam Date: 03/16/20 Reason for Exam: CHEST PAIN / SOB Height: 6 ft Weight: 163.293 kg Protocol: LEXISCAN Stage: NA Duration of Exercise: NA Resting Heart Rate: 69 Resting Blood Pressure: 127/60 Maximum Achieved Heart Rate: 98 Maximum Achieved Blood Pressure: 129/48 85% PMHR: NA 100% PMHR: NA METS: NA Technologist Comment: Stress Test Results/Findings: This is a 50-year-old gentleman was admitted to the hospital with chest pain and shortness of breath. Family history of ischemic heart disease and also smoking history. Stress data: Baseline EKG showed sinus rhythm with normal FL and QRS duration. Blood pressure at rest was 127/60 with a pulse rate of 69. A standard dose of Lexiscan was infused. EKGs taken during and after the infusion did not reveal any significant changes from baseline. Final impression: #1. Negative Lexiscan stress test #2. Report on the nuclear images to be given by the radiologist
--- NOTE | 2020-03-16 09:58 | P.PN ---
Subjective HISTORY OF PRESENTING ILLNESS This is a pleasant 50-year-old male past medical history significant for chronic nicotine dependence and morbid obesity. 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 He is seen and examined resting comfortably in no acute distress. He has had no further sympmtoms of chest pain, shortness of breath or dizziness. He denies palpitations, nausea, vomiting or diaphoresis. Blood pressure 132/74 heart rate 69 afebrile maintaining oxygen saturation on room air. Lipid profile reveals an LDL of 54 and an HDL of 63. PHYSICAL EXAMINATION CONSTITUTIONAL: No apparent distress. Morbidly obese. HEENT: Head is normocephalic. Pupils are equal, round. Sclerae anicteric. Mucous membranes of the mouth are moist. No JVD. No carotid bruit. CHEST EXAMINATION: Lungs are clear to auscultation. No chest wall tenderness is noted on palpation or with deep breathing. Diminished bilaterally. HEART EXAMINATION: Regular rate and rhythm. S1, S2 heard. No murmurs, gallops or rub. EXTREMITIES: 2+ peripheral pulses, no lower extremity edema and no calf tenderness. ASSESSMENT Chest pain, atypical for angina. An acute coronary event has been ruled out. Chronic nicotine dependence Morbid obesity, BMI 48 Family history of premature coronary artery disease, father at the age of 50 from heart attack. PLAN Proceed with stress test as previously recommended. If there is evidence of reversibility we will consider proceeding with cardiac catheterization. Nurse Practitioner note has been reviewed, I agree with a documented findings and plan of care. Patient was seen and examined. Objective - Vital Signs Vital signs: Vital Signs Temp 97.8 F 03/16/20 07:59 Pulse 69 03/16/20 07:59 Resp 18 03/16/20 07:59 BP 132/74 03/16/20 07:59 Pulse Ox 98 03/16/20 07:59 Intake & Output 03/15/20 03/16/20 03/16/20 18:59 06:59 18:59 Intake Total 1811.147 Balance 1811.147 Intake: IV 160 Sodium Chloride 0.9% 1, 160 000 ml @ 20 mls/hr IV . Q24H [facility] Rx#:[id number] Intake, IV Titration 51.147 Amount Heparin Sod,Pork in 0.45% 51.147 NaCl 25,000 unit In 0.45 % NaCl 1 250ml.bag @ 6. 1239 UNITS/KG/HR 10 mls/ hr IV .Q24H [facility] Rx#: [id number] Oral 1600 Other: Voiding Method Toilet Toilet Toilet # Voids 1 3 - Labs CBC & Chem 7: 03/14/20 10:06 03/14/20 10:06
--- NOTE | 2020-03-16 10:35 | NM ---
EXAMINATION TYPE: NM stress lexiscan cardiolite DATE OF EXAM: 03/16/2020 COMPARISON: Previous exam 12/27/2013 HISTORY: Chest pain TECHNIQUE: After the intravenous administration of 10.6 mCi Tc 99m Sestamibi - Cardiolite resting SP ECT images acquired 45 minutes post injection. The patient received 0.4mg Lexiscan, 26.3 mCi Tc 99m Sestamibi - Stress images obtained [address] injection FINDINGS: Review of stress and rest SPECT images demonstrates decreased uptake along the inferior wall on stres s and rest images. There is decreased uptake along the lateral and inferior lateral wall left ventric le on stress as compared to rest images within the left ventricle, towards the base of the heart some decreased uptake also noted along the septum on stress as compared to rest images. Gated analysis s hows normal wall motion with an estimated left ventricular ejection fraction of 42 %. IMPRESSION: Pharmacologically induced left ventricular myocardial ischemia, there may been prior infarct along th e inferior wall the left ventricle
[2020-03-16] MEDS: SODIUM CHLORIDE 0.9% 1,000 ML IV SCH (10:47)
--- NOTE | 2020-03-16 12:45 | ECHOF ---
Referral Reason:cp sob MEASUREMENTS -------- HEIGHT: 182.9 cm WEIGHT: 163.3 kg BP: RVIDd: 3.6 cm (< 3.3) IVSd: 1.3 cm (0.6 - 1.1) LVIDd: 5.2 cm (3.9 - 5.3) LVPWd: 1.1 cm (0.6 - 1.1) IVSs: 1.5 cm LVIDs: 3.2 cm LVPWs: 1.9 cm LA Diam: 3.7 cm (2.7 - 3.8) Ao Diam: 3.3 cm (2.0 - 3.7) AV Cusp: 1.6 cm (1.5 - 2.6) MV E Rory: 0.65 m/s MV DecT: 227 ms MV A Rory: 0.58 m/s MV E/A Ratio: 1.12 RAP: 5.00 mmHg RVSP: 12.32 mmHg FINDINGS -------- Sinus rhythm. Morbid Obesity This was a techncally difficult study with suboptimal views, , Lumason utilized for enhancement of im ages. The left ventricular size is normal. There is mild concentric left ventricular hypertrophy. Overa ll left ventricular systolic function is low-normal with, an EF between 50 - 55 %. Basal inferior L V wall motion is hypokinetic. The right ventricle is normal in size. The left atrial size is normal. The right atrial size is normal. 5.0mg OF Lumason UTLIZED: 2 OR MORE WALL SEGMENTS NOT VISUALIZED. The aortic valve was not well visualized. The mitral valve was not well visualized. The tricuspid valve was not well visualized. Unable to estimate RVSP due to inadequate TR jet spect ral doppler profile. The pulmonic valve was not well visualized. The aortic root size is normal. Echo free space represents a pericardial fat pad. CONCLUSIONS -------- 1. Sinus rhythm. 2. Morbid Obesity 3. This was a techncally difficult study with suboptimal views, , Lumason utilized for enhancement of images. 4. The left ventricular size is normal. 5. There is mild concentric left ventricular hypertrophy. 6. Overall left ventricular systolic function is low-normal with, an EF between 50 - 55 %. 7. Basal inferior LV wall motion is hypokinetic. 8. The right ventricle is normal in size. 9. The left atrial size is normal. 10. The right atrial size is normal. 11. 5.0mg OF Lumason UTLIZED: 2 OR MORE WALL SEGMENTS NOT VISUALIZED. 12. The aortic valve was not well visualized. 13. The mitral valve was not well visualized. 14. The tricuspid valve was not well visualized. 15. Unable to estimate RVSP due to inadequate TR jet spectral doppler profile. 16. The pulmonic valve was not well visualized. 17. Echo free space represents a pericardial fat pad. MACHINING AND ASSEMBLY SUPERVISOR: Debby Valle RDCS
--- NOTE | 2020-03-16 16:21 | P.DS ---
Providers Date of admission: 03/14/20 11:54 Expected date of discharge: 03/16/20 Attending physician: Modesto Heard Consults: 03/14/20 11:54 Consult Physician Urgent Consulting Provider: Suraj Astudillo Consult Reason/Comments: Chest pain Do you want consulting provider notified?: Yes Primary care physician: [facility] Course: Final Diagnoses: Chest pain, abnormal stress test, outpatient cardiac catheterization CAD, History of CO Family history of premature CAD Morbid obesity, BMI 48.8 Nicotine dependence Depression This a 50-year-old gentleman that presented to the hospital with chest pain and multiple other medical issues. Evaluated by cardiology, underwent Lexiscan stress test reported as abnormal; pharmacologically-induced left ventricular my ocardial ischemia, may have been prior infarct along the inferior wall of the left ventricle, EF estimated at 42%. Denies chest pain, palpitations or shortness of breath. Patient has a doctor's appointment that he prefers not to miss today. Cleared by cardiology for discharge with instructions for patient to follow up with cardiology this Monday for scheduling of outpatient cardiac cath next week. Patient will be discharged home in a stable condition with guarded prognosis. Please refer to EMR for further details. The impression and plan of care has been dictated as directed. : I performed a history and examination of this patient, discussed the same with the dictator. I agree with the dictator's note ,documented as a scribe. Any additional findings or plans will be noted. Patient Condition at Discharge: Stable Plan - Discharge Summary Discharge Rx Participant: No New Discharge Prescriptions: New Metoprolol Tartrate [Lopressor] 25 mg PO BID #60 tablet Aspirin 81 mg PO DAILY chew Atorvastatin [Lipitor] 40 mg PO DAILY #30 tablet Continue Albuterol Sulfate [Proair Hfa] 1 puff INHALATION RT-DAILY PRN PRN Reason: SHORT OF BREATH Albuterol Nebulized [Ventolin Nebulized] 2.5 mg INHALATION RT-QID PRN PRN Reason: Shortness Of Breath Discharge Medication List Albuterol Sulfate [Proair Hfa] 1 puff INHALATION RT-DAILY PRN 09/10/18 [History] Albuterol Nebulized [Ventolin Nebulized] 2.5 mg INHALATION RT-QID PRN 03/10/20 [History] Aspirin 81 mg PO DAILY chew 03/16/20 [Rx] Atorvastatin [Lipitor] 40 mg PO DAILY #30 tablet 03/16/20 [Rx] Metoprolol Tartrate [Lopressor] 25 mg PO BID #60 tablet 03/16/20 [Rx] Follow up Appointment(s)/Referral(s): Ab Mccarty MD [STAFF PHYSICIAN] - 03/20/20 3:00 pm Jad Goodrich MD [Primary Care Provider] - 03/19/20 11:30 am Patient Instructions/Handouts: Chest Pain (DC), How to Stop Smoking (DC) Activity/Diet/Wound Care/Special Instructions: Pending stress test, final DC recommendations and clearance from cardiology Discharge Disposition: HOME SELF-CARE
--- NOTE | 2020-03-17 08:08 | EST ---
Stress Test Results/Findings: Exam Performed: NM stress lexiscan cardiolite Exam Date: 03/16/20 Reason for Exam: CHEST PAIN / SOB Height: 6 ft Weight: 163.293 kg Protocol: LEXISCAN Stage: NA Duration of Exercise: NA Resting Heart Rate: 69 Resting Blood Pressure: 127/60 Maximum Achieved Heart Rate: 98 Maximum Achieved Blood Pressure: 129/48 85% PMHR: NA 100% PMHR: NA METS: NA Technologist Comment: Stress Test Results/Findings: This is a 50-year-old gentleman was admitted to the hospital with chest pain and shortness of breath. Family history of ischemic heart disease and also smoking history. Stress data: Baseline EKG showed sinus rhythm with normal AL and QRS duration. Blood pressure at rest was 127/60 with a pulse rate of 69. A standard dose of Lexiscan was infused. EKGs taken during and after the infusion did not reveal any significant changes from baseline. Final impression: #1. Negative Lexiscan stress test #2. Report on the nuclear images to be given by the radiologist SIM
== END 2020-03-16 12:00 | disposition home or self-care (01) ==
LOC: EC 09:55 → 3NCARDOBS 11:54
PROVIDERS: ADMIT Family Medicine; ATTEND Family Medicine
DX: R07.89 Other chest pain (principal); R61 Generalized hyperhidrosis; R07.2 Precordial pain; R42 Dizziness and giddiness; R20.0 Anesthesia of skin; R20.2 Paresthesia of skin; R06.02 Shortness of breath; R94.39 Abnormal result of other cardiovascular function study; I25.110 Atherosclerotic heart disease of native coronary artery with unstable angina pectoris; I25.2 Old myocardial infarction; F32.9 Major depressive disorder, single episode, unspecified; J45.909 Unspecified asthma, uncomplicated; Z79.899 Other long term (current) drug therapy; Z90.49 Acquired absence of other specified parts of digestive tract; Z95.5 Presence of coronary angioplasty implant and graft; F17.200 Nicotine dependence, unspecified, uncomplicated; E66.01 Morbid (severe) obesity due to excess calories; Z68.42 Body mass index [BMI] 45.0-49.9, adult; Z80.9 Family history of malignant neoplasm, unspecified; Z82.49 Family history of ischemic heart disease and other diseases of the circulatory system; Z11.59 Encounter for screening for other viral diseases
CPT/HCPCS: 93005 ×2; 96365; 96366 ×2; 96376 ×2; 99291; 36415; 94640 ×3; 93017; 93306; 85379; 83880; 80061; 80053; 82550; 83690; 83735; 84484; 85025; 85610; 85730 ×2; 71046; 78452; G0378 ×3; U0003; A9500; J1644 ×4; J2785; Q9950

== ENCOUNTER → 2020-03-23 | Day surgery (SDC) | payer BC ==
[~2020-03-23] MED LIST changes: +ALPRAZolam 0.25 MG TAB PO PRN; +ALPRAZolam 0.5 MG TAB PO PRN; +ASPIRIN 325 MG TAB PO STA; +ASPIRIN 81 MG ONE; +ATORVASTATIN 80 MG TAB PO STA; -DEXAMETHASONE SOD PHOSPHATE 10 MG/ML 1 ML VIAL IV ONE; +HEPARIN SODIUM 1,000 UN/ML (10ML VL) ONE; -HEPARIN SODIUM,PORCINE 5,000 UNIT/ML 1 ML VIAL SQ ONE; -HYDROmorphone 0.5 MG/0.5 ML SYRINGE IVP PRN; +IOPAMIDOL-370 100ML BTL INJ ONE; +IOPAMIDOL-370 50ML BTL INJ ONE; -LACTATED RINGERS 1,000 ML IV SCH; -LIDOCAINE 1% 20 ML VIAL (10MG/ML) FOR IV START INTRADERMA PRN; +LIDOCAINE 1% INJ 10MG/ML (20 ML MDV) SQ ONE; +MIDAZOLAM 2 MG/2 ML VIAL IV ONE; +NITROGLYCERIN SL TABS 0.4 MG TAB SUBLINGUAL PRN; -ONDANSETRON 4 MG/2 ML VIAL IVP ONE; -SCOPOLAMINE 1.5MG/72HR PATCH TRANSDERM ONE; +SODIUM CHLORIDE 0.9% 1,000 ML in EMPTY BAG 1 BAG IV ONE; +VERAPAMIL 2.5 MG/ML 2 ML AMP ONE; -ceFAZolin IN SWFI 2 GM/20 ML SYRINGE IVP ONE; -metroNIDAZOLE-NS PMX 500 MG in SALINE 1 100ML.BAG IVPB ONE
[2020-03-23 09:30] VITALS: TEMP 98.2
[2020-03-23] MEDS: VERAPAMIL SYRINGE (5 MG/10 ML) INTRAARTER ONE ×2 (10:52→11:07)
[2020-03-23 16:28] VITALS: BP 99/50; PULSE 54; RESP 18
--- NOTE | 2020-03-23 16:40 | CC ---
CARDIAC CATHETERIZATION REPORT DATE OF SERVICE: 03/23/2020 PROCEDURE: Left heart catheterization, coronary angiography and left ventriculography. PERFORMED BY: Dr. Brandy Mccarty. Moderate conscious sedation time was 18 minutes. Patient was administered Versed. Oxygen, hemodynamics and EKG were monitored closely. CLINICAL INFORMATION: Mr. Kranthi Sanabria is a 50-year-old obese gentleman, history of smoking, possible mild COPD, hypertension and hypercholesterolemia who was recently hospitalized and had an abnormal stress test with lateral wall reversible defect. Given these findings, he was advised smoking cessation and beta ebenezer was initiated and atorvastatin was started and he was advised coronary angiography after due discussion regarding risks, benefits, and options. PROCEDURE NOTE: Under local anesthesia and strict aseptic precautions, a 6-Khmer introducer was placed in the right radial artery. Using standard Dirk catheters, I performed selective coronary angiography and a pigtail catheter was used to perform LV g after checking LV pressures. The catheter and sheath were taken out and a large TR band applied as per protocol. The patient received 4000 units of heparin. He tolerated the procedure well without complications. The results were discussed with the patient and I left a message for his daughter. CARDIAC CATHETERIZATION FINDINGS: The left foot end-diastolic pressure was about 14 to 15 mmHg and there was no gradient across the aortic valve. LEFT VENTRICULOGRAM: This was performed in 30-degree LEONG projection, revealed left ventricle is of normal size with good systolic function, ejection fraction of 55% with a catheter-induced mitral regurgitation. There was no wall motion abnormality. CORONARY ANGIOGRAPHY FINDINGS: RIGHT CORONARY ARTERY: A dominant vessel, has no significant disease and in the distal portion it gives off a large acute marginal, then bifurcates into PDA and PLV. The acute marginal also runs into PDA distribution. There are minor irregularities and PLV is of fair caliber as is the PDA. There are minor irregularities, no significant disease and the acute marginal is also large in caliber and distribution. LEFT MAIN CORONARY ARTERY: This is a short patent vessel, free of significant disease. Bifurcates into LAD and circumflex. LEFT ANTERIOR DESCENDING CORONARY ARTERY: Good caliber vessel, extends along the anterior wall, gives off a diagonal branch, several septal branches runs towards the apex in the distal 1/4. The caliber of the vessel is small, but no significant disease is noted. LEFT POSTERIOR CIRCUMFLEX CORONARY ARTERY: Nondominant vessel, gives off a high first obtuse marginal, fair caliber, no significant disease and then runs in the AV groove and gives off a posterolateral branch which has also minor irregularities, no significant disease. FINAL IMPRESSION: This patient has slightly elevated filling pressures, no gradient across aortic valve. Normal LV systolic function with ejection fraction of 55% without wall motion abnormality. He has a right dominant system, minor irregularities, no significant disease. There is diffuse disease and diffuse narrowing of the distal LAD, but overall no significant disease noted in the coronary system. RECOMMENDATIONS: Findings were reviewed with the patient and I left a message for his daughter. I am recommending aggressive medical therapy with risk factor modification, smoking cessation. He will be discharged later on today if he remains stable. MMODL / IJN: [id number] /
== END ==
LOC: CATHCVL 09:01
PROVIDERS: ATTEND Internal Medicine Interventional Cardiology
DX: I25.110 Atherosclerotic heart disease of native coronary artery with unstable angina pectoris (principal); I10 Essential (primary) hypertension; E66.9 Obesity, unspecified; E78.00 Pure hypercholesterolemia, unspecified; Z79.82 Long term (current) use of aspirin; Z79.899 Other long term (current) drug therapy; Z68.42 Body mass index [BMI] 45.0-49.9, adult; Z87.891 Personal history of nicotine dependence; Z82.49 Family history of ischemic heart disease and other diseases of the circulatory system
CPT/HCPCS: 93458; J2250; J2001; J1644; Q9967 ×2

== ENCOUNTER → 2021-09-08 | Outpatient (CLI) | payer BC ==
[~2021-09-08] MED LIST changes: -ALPRAZolam 0.25 MG TAB PO PRN; -ALPRAZolam 0.5 MG TAB PO PRN; -ASPIRIN 325 MG TAB PO STA; -ASPIRIN 81 MG ONE; -ATORVASTATIN 80 MG TAB PO STA; +CASIRIVIMAB (REGN10933) (EUA) 600 MG, IMDEVIMAB (REGN10987) (EUA) 600 MG in SODIUM CHLO... IVPB NR; -HEPARIN SODIUM 1,000 UN/ML (10ML VL) ONE; -IOPAMIDOL-370 100ML BTL INJ ONE; -IOPAMIDOL-370 50ML BTL INJ ONE; -LIDOCAINE 1% INJ 10MG/ML (20 ML MDV) SQ ONE; -MIDAZOLAM 2 MG/2 ML VIAL IV ONE; -NITROGLYCERIN SL TABS 0.4 MG TAB SUBLINGUAL PRN; -SODIUM CHLORIDE 0.9% 1,000 ML in EMPTY BAG 1 BAG IV ONE; +SODIUM CHLORIDE 0.9% 50 ML IVPB NR; +SODIUM CHLORIDE 0.9% 500 ML 500 ML in EMPTY BAG 1 BAG IV PRN; -VERAPAMIL 2.5 MG/ML 2 ML AMP ONE
[2021-09-08 13:17] VITALS: TEMP 98.5
[2021-09-08 14:28] VITALS: BP 107/66; PULSE 73; RESP 16
== END | disposition home or self-care (01) ==
LOC: PROCWHC3 12:57
PROVIDERS: ATTEND Nurse Practitioner Family
DX: U07.1 COVID-19 (principal)
CPT/HCPCS: 96360; Q0244; M0243

== ENCOUNTER 2023-02-11 15:10 | Emergency (ER) | payer BC ==
[~2023-02-11 15:10] MED LIST changes: -CASIRIVIMAB (REGN10933) (EUA) 600 MG, IMDEVIMAB (REGN10987) (EUA) 600 MG in SODIUM CHLO... IVPB NR; +ETOMIDATE 2 MG/ML 10 ML VIAL ONE; +ROCURONIUM 10 MG/ML (5 ML VIAL) IV ONE; -SODIUM CHLORIDE 0.9% 50 ML IVPB NR; -SODIUM CHLORIDE 0.9% 500 ML 500 ML in EMPTY BAG 1 BAG IV PRN
[2023-02-11] MEDS: SODIUM CHLORIDE 0.9% 1,000 ML IV STA ×2 (15:15→18:07)
[2023-02-11] MEDS ORDERED: SODIUM CHLORIDE 0.9% 1,000 ML IV STA (15:16)
[2023-02-11] MEDS ORDERED: ASPIRIN 81 MG PO STA (15:16)
[2023-02-11] MEDS ORDERED: DILTIAZEM 125 MG in SODIUM CHLORIDE 0.9% 100 ML IV SCH (15:30)
[2023-02-11] MEDS ORDERED: MIDAZOLAM 1 MG/ML 5 ML VIAL IV STA (15:30)
[2023-02-11] MEDS ORDERED: NOREPINEPHRINE 4 MG in SODIUM CHLORIDE 0.9% 250 ML IV SCH (15:35)
[2023-02-11] MEDS ORDERED: HEPARIN SODIUM 1,000 UN/ML (10ML VL) IV PRN (15:38)
[2023-02-11] MEDS ORDERED: HEPARIN SODIUM 1,000 UN/ML (10ML VL) IV STA (15:38)
[2023-02-11] MEDS ORDERED: DEXTROSE 5% IN WATER 100 ML with AMIODARONE 150 MG IV ONE (15:41)
[2023-02-11] MEDS ORDERED: AMIODARONE 360 MG in DEXTROSE 5% IN WATER 200 ML IV ONE ×2 (15:41)
[2023-02-11 15:43] VITALS: BP 69/44; PULSE 160; RESP 40; TEMP 98.2
[2023-02-11] MEDS ORDERED: HEPARIN SOD,PORK IN 0.45% NACL 25,000 UNIT in 0.45% NACL 1 250ML.BAG IV SCH (15:45)
[2023-02-11 15:48] LABS: Basophils % (A) 0 %; Eosinophils # (A) 0.2 k/uL (0-0.7); Eosinophils % (A) 1 %; HCT 49.7 % (39.0-53.0); HGB 15.5 gm/dL (13.0-17.5); Hypochromasia Slight; Lymphocytes # (A) 2.5 k/uL (1.0-4.8); Lymphocytes % (A) 15 %; MCH 30.1 pg (25.0-35.0); MCHC 31.3 g/dL (31.0-37.0); MCV 96.3 fL (80.0-100.0); Mean Platelet Volume 7.8; Monocytes # (A) 0.5 k/uL (0-1.0); Monocytes % (A) 3 %; Neutrophils # (A) 13.2 k/uL (1.3-7.7); Neutrophils % (A) 80 %; Platelet Count 261 k/uL (150-450); RBC 5.16 m/uL (4.30-5.90); WBC 16.6 k/uL (3.8-10.6)
[2023-02-11] MEDS ORDERED: EPINEPHrine 10 ML SYRINGE (0.1 MG/ML) ONE (15:55)
[2023-02-11] MEDS ORDERED: CALCIUM CHLORIDE 100 MG/ML 10 ML SYRINGE ONE (15:55)
[2023-02-11] MEDS ORDERED: SODIUM BICARB 8.4% 50 ML SYR (1 MEQ/ML) ONE (15:55)
[2023-02-11] MEDS ORDERED: NOREPINEPHRINE 1 MG/ML 4 ML VIAL IV ONE (15:55)
[2023-02-11] MEDS ORDERED: SODIUM CHLORIDE 0.9% 250 ML BAG ONE (15:55)
--- NOTE | 2023-02-11 15:57 | XR ---
EXAMINATION TYPE: XR chest 1V portable DATE OF EXAM: 02/11/2023 3:32 PM COMPARISON: Chest radiographs from 03/14/2020 TECHNIQUE: XR chest 1V portable Frontal view of the chest. CLINICAL INDICATION:Male, 53 years old with history of chest pain; FINDINGS: Lungs/Pleura: There is no evidence of pleural effusion, focal consolidation, or pneumothorax. Pulmonary vascularity: Unremarkable. Heart/mediastinum: Cardiomediastinal silhouette is unremarkable. Musculoskeletal: No acute osseous pathology. IMPRESSION: No acute cardiopulmonary disease/process.
[2023-02-11 15:59] LABS: ALT 356 U/L (4-49); AST 472 U/L (17-59); African American GFR (CKD) 63 (>60 ml/min/1.73 sqM); Albumin 3.8 g/dL (3.5-5.0); Alkaline Phosphatase 109 U/L (38-126); Anion Gap 17 mmol/L; Blood Urea Nitrogen 16 mg/dL (9-20); Calcium 8.8 mg/dL (8.4-10.2); Carbon Dioxide 18 mmol/L (22-30); Chloride 103 mmol/L (98-107); Glucose 304 mg/dL (74-99); Lipase 172 U/L (23-300); Magnesium 2.1 mg/dL (1.6-2.3); Non-African American GFR(CKD) 55 (>60 ml/min/1.73 sqM); Potassium 4.2 mmol/L (3.5-5.1); Sodium 138 mmol/L (137-145); Total Bilirubin 0.9 mg/dL (0.2-1.3); Total Protein 6.7 g/dL (6.3-8.2)
[2023-02-11] MEDS ORDERED: ALTEPLASE BOLUS 1 MG/1 ML SYRINGE IV STA (16:00)
[2023-02-11] MEDS ORDERED: ALTEPLASE IV STA (16:00)
[2023-02-11 16:06] LABS: Prothrombin Time 10.4 sec (9.0-12.0)
[2023-02-11 16:25] LABS: Partial Thromboplastin Time 21.3 sec (22.0-30.0)
[2023-02-11] MEDS ORDERED: SODIUM CHLORIDE 0.9% 50 ML MINI-BAG IV ONE (17:02)
--- NOTE | 2023-02-11 19:00 | ED ---
General Adult HPI - General Chief complaint: Chest Pain Stated complaint: chest pain Time Seen by Provider: 02/11/23 15:15 Source: patient, RN notes reviewed, old records reviewed Mode of arrival: EMS Limitations: no limitations - History of Present Illness Initial comments: Patient is a 53-year-old male who presents with Department complaining of chest pain, shortness of breath. Symptoms have been ongoing for approximately 2 hours prior to arrival. He called EMS at 1430 due to his symptoms. When they arrived, they found the patient hypoxic, hypotensive, and tachycardic. Concern for A. fib with RVR. Patient was complaining of left-sided chest pain that he states radiated somewhat into his abdomen but also causing severe shortness of breath as well as having some right leg pain that has since resolved. Denies any new swelling. Does not believe he is on blood thinners. Is uncertain if he has a history of A. fib. States he does have a history of cardiac stents. Denies any ration radiation the chest pain. Patient is extremely diaphoretic. Denies nausea or vomiting. Patient was saturating in the 80% on room air prior to arrival. Presents for further evaluation at this time. States he feels short of breath. No known history of blood clots. No known history of long distance travel. - Related Data Home Medications Medication Instructions Recorded Confirmed Albuterol Sulfate [Proair Hfa] 1 puff INHALATION RT-DAILY PRN 09/10/18 03/23/20 Albuterol Nebulized [Ventolin 2.5 mg INHALATION RT-QID PRN 03/10/20 03/23/20 Nebulized] Previous Rx's Medication Instructions Recorded Aspirin 81 mg PO DAILY chew 03/16/20 Atorvastatin [Lipitor] 40 mg PO DAILY #30 tablet 03/16/20 Metoprolol Tartrate [Lopressor] 25 mg PO BID #60 tablet 03/16/20 Allergies Allergy/AdvReac Type Severity Reaction Status Date / Time No Known Allergies Allergy Verified 09/08/21 13:08 Review of Systems ROS Statement: Those systems with pertinent positive or pertinent negative responses have been documented in the HPI. Review of Systems: CONST: Denies fever EYES: Denies blurry vision ENT: Denies nasal congestion C/V: Endorses chest pain RESP: Endorses shortness of breath GI: Denies abdominal pain : Denies dysuria SKIN: Denies rash. MSK: Denies joint pain. NEURO: Denies headache ROS Other: All systems not noted in ROS Statement are negative. Past Medical History Past Medical History: Asthma, Myocardial Infarction (HI) Last Myocardial Infarction Date:: 1999 History of Any Multi-Drug Resistant Organisms: None Reported Past Surgical History: Back Surgery, Cholecystectomy, Heart Catheterization With Stent Additional Past Surgical History / Comment(s): Pilonodial cyst removed Past Anesthesia/Blood Transfusion Reactions: No Reported Reaction Date of Last Stent Placement:: 1999 Past Psychological History: Depression Smoking Status: Current every day smoker Past Alcohol Use History: Occasional Past Drug Use History: None Reported - Past Family History Mother Family Medical History: Cancer Additional Family Medical History / Comment(s): Reproductive General Exam - General Exam Comments Initial Comments: General: Patient appears in significant distress secondary to chest pain shortne ss of breath. Diaphoretic. HEAD: Normal with no signs of head trauma. EYES: PERRLA, EOMI, conjunctiva normal, no discharge. Pupils are 3 mm equal bilaterally. ENT: Hearing grossly intact, normal oropharynx. Trachea is midline. RESPIRATORY: Clear breath sounds bilaterally. No wheezes, rales, or rhonchi. Hypoxia on room air, maintaining normal saturations on 6 L nasal cannula. C/V: Irregular rate and rhythm. Hypotensive. Tachycardic. Peripheral pulses are weak in all 4 extremities. S1 and S2 auscultated. ABD: Abd is soft, nontender, nondistended EXT: Normal range of motion, no obvious deformity SKIN: No rashes or lesions observed on exposed skin. NEURO: Alert and oriented 4. Generalized weakness. No focal deficits. Limitations: no limitations Course Vital Signs 02/11/23 15:37 Temperature 98.2 F Pulse Rate 160 H Respiratory 40 H Rate Blood Pressure 69/44 O2 Sat by Pulse 96 Oximetry Procedures - Intubation Sedative: Etomidate Mg Given: 15 Paralytic: Rocuronium Mg Given: 75 Laryngoscope: other (glidescope) Size: 4 ET Tube Size: 7.5 Tube Secured Depth (cm): 25 Tube Secured Location: lips Tube Placement Confirmation: visualized tube passing through cords, equal breath sounds bilaterally, confirmation by capnometry Patient Tolerated Procedure: well Intubation Complications: none Medical Decision Making - Medical Decision Making Was pt. sent in by a medical professional or institution (, PA, SCIENTIFIC LABORATORY SUPERVISOR, urgent care, hospital, or [facility]...) When possible be specific @ -No Did you speak to anyone other than the patient for history (EMS, parent, family, police, friend...)? What history was obtained from this source @ -I spoke with the EMS who provided the history at the scene as well as in route to the hospital. Did you review nursing and triage notes (agree or disagree)? Why? @ -I reviewed and agree with nursing and triage notes Were old charts reviewed (outside hosp., previous admission, EMS record, old EKG, old radiological studies, urgent care reports/EKG's, [facility] records)? Report findings @ -Old charts reviewed from multiple years ago including EKG Differential Diagnosis (chest pain, altered mental status, abdominal pain women, abdominal pain men, vaginal bleeding, weakness, fever, dyspnea, syncope, headache, dizziness, GI bleed, back pain, seizure, CVA, palpatations, mental health, musculoskeletal)? @ -Differential Chest Pain: Stable Angina, Unstable Angina, STEMI, NSTEMI Aortic Dissection, Pneumothorax, Musculoskeletal, Esophageal Spasm GERD, Cholecystitis, Pancreatitis, Zoster, this is not meant to be an all-inclusive list. Differential Dyspnea: Coronary syndrome, arrhythmia, tamponade, asthma, COPD, pulmonary embolism, pneumonia, pneumothorax, pulmonary effusion, anaphylaxis, diabetic ketoacidosis, flailed chest, pulmonary contusion, diaphragmatic rupture, anemia, neuromuscular, this is not meant to be an all-inclusive list. EKG interpreted by me (3pts min.). @ -As above X-rays interpreted by me (1pt min.). @ -Chest x-ray revealed no acute cardio pulmonary process. No focal consolidations. No pneumothorax. CT interpreted by me (1pt min.). @ -None done U/S interpreted by me (1pt. min.). @ -None done What testing was considered but not performed or refused? (CT, X-rays, U/S, labs)? Why? @ -CT angio chest for PE was ordered but was unable to be completed secondary to patient suffering cardio pulmonary arrest and ultimately . What meds were considered but not given or refused? Why? @ -Cardizem was considered the patient was hypotensive and therefore synchroniz ed cardioversion was completed. Amiodarone was also considered for the A. fib with RVR, however after intubation, RVR resolved and patient then coded and was not in RVR. Did you discuss the management of the patient with other professionals (professionals i.e. DrLauro, PA, SCIENTIFIC LABORATORY SUPERVISOR, lab, RT, psych nurse, older adult social work specialist, gear shaper set up operator, teacher, forest officer, director of casework department)? Give summary @ -I spoke with the medical historian who released the body to the [facility]. I spoke with Dr. Heard the patient's PCP and updated him on the patient's . He expressed understanding. Was smoking cessation discussed for >3mins.? @ -No Was critical care preformed (if so, how long)? @ -Yes, 103 minutes. Were there social determinants of health that impacted care today? How? (Homelessness, low income, unemployed, alcoholism, drug addiction, transportation, low edu. Level, literacy, decrease access to med. care, penitentiary, rehab)? @ -No Was there de-escalation of care discussed even if they declined (Discuss DNR or withdrawal of care, Hospice)? DNR status @ -No What co-morbidities impacted this encounter? (DM, HTN, Smoking, COPD, CAD, Cancer, CVA, ARF, Chemo, Hep., AIDS, mental health diagnosis, sleep apnea, morbid obesity)? @ -History of CAD, morbid obesity Was patient admitted / discharged? Hospital course, mention meds given and route, prescriptions, significant lab abnormalities, going to OR and other pertinent info. @ -Based on the patient's presentation and physical exam, he immediately presented again respiratory distress complaining of shortness of breath and chest pain. Patient hypoxic on room air but satting well on 6 L nasal cannula. However patient initially presented hypotensive and in A. fib with RVR. Appears to be new onset as he is not on blood thinners. States he may have been in it before but typically is not. Overall patient is a poor historian but is in significant distress at this time. Patient is afebrile. Patient was initially treated as new-onset A. fib with RVR. However as he is currently unstable, we did attempt fluid resuscitation to improve his blood pressures which were unsuccessful. Patient remained hypotensive with systolics ranging from 60-80 with RVR ranging from 140-160. Considered Cardizem or amiodarone, however patient is to hypotensive for Cardizem. Amiodarone was ordered, however patient was too unstable to wait for it and therefore we decided to cardiovert the patient. Patient was therefore administered 2 mg of IV Versed at this time, the patient was synchronized cardioverted initially at 150 J, with minimal effect and then significant cardioverted again at 200 J. Patient's RVR was controlled at this time with lower heart rates however he remained hypotensive despite 2-1/2 L fluid boluses. Patient was now more unresponsive at this time, and also turning more purple somewhat in his face. Agonal respirations. Decision was made to intubate the patient at this time despite the high risk. A Levophed drip was started through a large bore peripheral line at this time. Patient was intubated with 7.5 ET tube. See additional note for further details. He tolerated intubation well, however immediately post intubation patient began to experience more pronounced bradycardia, still in atrial fibrillation. He was still saturating well but patient remained hypotensive. Patient became pulseless at 1555. ACLS protocol was immediately started. Patient was given an amp of epi, an amp of calcium chloride, and an amp of bicarb. Return of spontaneous circulations noted at 1558. Attempts were made to obtain a repeat EKG however patient lost pulses again at 1601. At this time, clinical suspicion for pulmonary embolism was extremely high. Labs are still pending. Decision was made to push TPA. TPA was ordered, however did not arrive and was then administered a total 1613 is completed at 1618. We worked the patient for 30 minutes after TPA was administered. Patient received a total of 10 A of epinephrine, 4 A of calcium chloride, 4 A of bicarb. At 1645, after approximately 50 minutes of total downtime, TPA administration, as well as multiple rounds of CPR and medications, the decision was made to cease resuscitation efforts. Patient was in PEA rest throughout cardiac arrest. Patient remains in PEA at this time. Further resuscitation efforts would be futile. Resuscitation team was in agreement with this assessment and plan. Patient pronounced at 1645. Time of 1645. Labs did eventually returned and showed a slightly elevated troponin, as well as a significantly elevated d-dimer, all suggesting that patient likely suffered obstructive shock from a large pulmonary embolism. Unknown for certain, as we are unable to obtain diagnostic imaging. I spoke with the next of kin, patient's stepdaughter Deanna who did present to the emergency department. Patient is not acute to fly candidate. I notified the patient's stepdaughter of his passing and she expressed understanding. I notified the patient's last known PCP, Dr. Heard who expressed understanding. payroll examiner was notified, and patient was released. Case number is [id number]. Patient has . Undiagnosed new problem with uncertain prognosis? @ -No Drug Therapy requiring intensive monitoring for toxicity (Heparin, Nitro, Insulin, Cardizem)? @ -No Were any procedures done? @ -No Diagnosis/symptom? @ -Cardiopulmonary arrest resulting in , likely secondary to suspected pulmonary embolism and obstructive shock. Acute, or Chronic, or Acute on Chronic? @ -Acute Uncomplicated (without systemic symptoms) or Complicated (systemic symptoms)? @ -Complicated Side effects of treatment? @ -No Exacerbation, Progression, or Severe Exacerbation? @ -No Poses a threat to life or bodily function? How? (Chest pain, [place], HI, pneumonia, PE, COPD, DKA, ARF, appy, cholecystitis, CVA, Diverticulitis, Homicidal, Suicidal, threat to staff... and all critical care pts) @ -Patient . Diagnosis/symptom? @ -Acute hypoxic respiratory failure resulting in intubation and mechanical ventilation. Acute, or Chronic, or Acute on Chronic? @ -Acute Uncomplicated (without systemic symptoms) or Complicated (systemic symptoms)? @ -Complicated Side effects of treatment? @ -none Exacerbation, Progression, or Severe Exacerbation] @ -no Poses a threat to life or bodily function? @ -Patient - Lab Data Result diagrams: 02/11/23 15:24 02/11/23 15:24 Lab Results 02/11/23 02/11/23 02/11/23 Range/Units 15:24 15:24 15:24 WBC 16.6 H (3.8-10.6) k/uL RBC 5.16 (4.30-5.90) m/uL Hgb 15.5 (13.0-17.5) gm/dL Hct 49.7 (39.0-53.0) % MCV 96.3 (80.0-100.0) fL MCH 30.1 (25.0-35.0) pg MCHC 31.3 (31.0-37.0) g/dL RDW 13.0 (11.5-15.5) % Plt Count 261 (150-450) k/uL MPV 7.8 Neutrophils % 80 % Lymphocytes % 15 % Monocytes % 3 % Eosinophils % 1 % Basophils % 0 % Neutrophils # 13.2 H (1.3-7.7) k/uL Lymphocytes # 2.5 (1.0-4.8) k/uL Monocytes # 0.5 (0-1.0) k/uL Eosinophils # 0.2 (0-0.7) k/uL Basophils # 0.0 (0-0.2) k/uL Hypochromasia Slight PT 10.4 (9.0-12.0) sec INR 1.0 (<1.2) APTT 21.3 L (22.0-30.0) sec D-Dimer (<0.60) mg/L FEU Sodium 138 (137-145) mmol/L Potassium 4.2 (3.5-5.1) mmol/L Chloride 103 (98-107) mmol/L Carbon Dioxide 18 L (22-30) mmol/L Anion Gap 17 mmol/L BUN 16 (9-20) mg/dL Creatinine 1.47 H (0.66-1.25) mg/dL Est GFR (CKD-EPI)AfAm 63 (>60 ml/min/1.73 sqM) Est GFR (CKD-EPI)NonAf 55 (>60 ml/min/1.73 sqM) Glucose 304 H (74-99) mg/dL Calcium 8.8 (8.4-10.2) mg/dL Magnesium 2.1 (1.6-2.3) mg/dL Total Bilirubin 0.9 (0.2-1.3) mg/dL AST 472 H (17-59) U/L ALT 356 H (4-49) U/L Alkaline Phosphatase 109 (38-126) U/L Troponin I (0.000-0.034) ng/mL NT-Pro-B Natriuret Pep pg/mL Total Protein 6.7 (6.3-8.2) g/dL Albumin 3.8 (3.5-5.0) g/dL Lipase 172 (23-300) U/L 02/11/23 02/11/23 02/11/23 Range/Units 15:24 15:24 15:24 WBC (3.8-10.6) k/uL RBC (4.30-5.90) m/uL Hgb (13.0-17.5) gm/dL Hct (39.0-53.0) % MCV (80.0-100.0) fL MCH (25.0-35.0) pg MCHC (31.0-37.0) g/dL RDW (11.5-15.5) % Plt Count (150-450) k/uL MPV Neutrophils % % Lymphocytes % % Monocytes % % Eosinophils % % Basophils % % Neutrophils # (1.3-7.7) k/uL Lymphocytes # (1.0-4.8) k/uL Monocytes # (0-1.0) k/uL Eosinophils # (0-0.7) k/uL Basophils # (0-0.2) k/uL Hypochromasia PT (9.0-12.0) sec INR (<1.2) APTT (22.0-30.0) sec D-Dimer >34.00 H (<0.60) mg/L FEU Sodium (137-145) mmol/L Potassium (3.5-5.1) mmol/L Chloride (98-107) mmol/L Carbon Dioxide (22-30) mmol/L Anion Gap mmol/L BUN (9-20) mg/dL Creatinine (0.66-1.25) mg/dL Est GFR (CKD-EPI)AfAm (>60 ml/min/1.73 sqM) Est GFR (CKD-EPI)NonAf (>60 ml/min/1.73 sqM) Glucose (74-99) mg/dL Calcium (8.4-10.2) mg/dL Magnesium (1.6-2.3) mg/dL Total Bilirubin (0.2-1.3) mg/dL AST (17-59) U/L ALT (4-49) U/L Alkaline Phosphatase (38-126) U/L Troponin I 0.159 H* (0.000-0.034) ng/mL NT-Pro-B Natriuret Pep 754 pg/mL Total Protein (6.3-8.2) g/dL Albumin (3.5-5.0) g/dL Lipase (23-300) U/L - EKG Data -: EKG Interpreted by Me EKG Comments: 12-lead Electrocardiogram Interpretation Note EKG was reviewed and interpreted by myself. 12-lead ECG performed at 1516 is interpreted by me as revealing A. fib with RVR at a rate of 149 beats per minute. [place] is normal. QRS duration is 105 ms, QTc is 303 ms.. There were no ST or T wave abnormalities to suggest myocardial ischemia or injury. R wave progression across the precordium was satisfactory. By my interpretation this EKG is non-diagnostic for acute ischemia. 12-lead Electrocardiogram Interpretation Note EKG was reviewed and interpreted by myself. 12-lead ECG performed at 1539 is interpreted by me as revealing. A. fib With RVR at a rate of 135 beats per minute. [place] is normal. QRS duration is 118 ms, QTc is 392 ms.. There were no ST or T wave abnormalities to suggest myocardial ischemia or injury. R wave progression across the precordium was satisfactory. By my interpretation this EKG is non-diagnostic for acute ischemia. 12-lead Electrocardiogram Interpretation Note EKG was reviewed and interpreted by myself. 12-lead ECG performed at 1544 is interpreted by me as revealing A. fib with RVR at a rate of 131 beats per minute. [place] is normal. QRS ration is 122 ms, QTc is 397 ms.. There were no ST or T wave abnormalities to suggest myocardial ischemia or injury. R wave progression across the precordium was satisfactory. By my interpretation this EKG is non-diagnostic for acute ischemia. Critical Care Time Critical Care Time: Yes Total Critical Care Time: 103 Disposition Clinical Impression: Atrial fibrillation, Cardiopulmonary arrest, Suspected pulmonary embolism, Acute respiratory failure with hypoxia, Shock Disposition: Referrals: None,Stated [Primary Care Provider] - 1-2 days Time of Disposition: 16:45 Preliminary Cause of : Cardiopulmonary arrest, suspected PE
[2023-02-11] MEDS ORDERED: AMIODARONE 450 MG in DEXTROSE 5% IN WATER 250 ML IV SCH ×2 (20:00)
== END 2023-02-11 20:31 | disposition expired ==
LOC: EC 15:10
DX: I48.91 Unspecified atrial fibrillation (principal); I46.9 Cardiac arrest, cause unspecified; J96.01 Acute respiratory failure with hypoxia; R57.9 Shock, unspecified; J45.909 Unspecified asthma, uncomplicated; I25.2 Old myocardial infarction; F32.A Depression, unspecified; F17.200 Nicotine dependence, unspecified, uncomplicated; Z79.899 Other long term (current) drug therapy
CPT/HCPCS: 36415; 92950; 93005; 85379; 83880; 80053; 83690; 83735; 84484; 85025; 85610; 85730; 71045; 99291; 99292; 96365; 96375; 31500; 37195; J2997; J0171; J2250